=== PATIENT | male | born 1965 | race Caucasian/White ===

== ENCOUNTER 2025-01-15 17:32 | Emergency (ER) | payer BC ==
[~2025-01-15] VITALS: Ht 175.3 cm; Wt 72.6 kg
[2025-01-15 19:19] LABS: BASOPHILS # (AUTO) 0.07 K/uL (0.00-0.20); BASOPHILS % (AUTO) 0.5 % (0.0-5.0); EOSINOPHILS # (AUTO) 0.11 K/uL (0.00-0.70); EOSINOPHILS % (AUTO) 0.8 % (0.0-8.0); HEMATOCRIT 42.7 % (42-54); IMMATURE GRANULOCYTE ABSOLUTE 0.04 K/uL (0-1); MEAN CORPUSCULAR HEMOGLOBIN 29.8 pg (27.0-33.0); MEAN CORPUSCULAR HGB CONC 33.7 g/dL (32.0-36.0); MEAN CORPUSCULAR VOLUME 88.2 fL (79-99); MONOCYTES % (AUTO) 7.3 % (3.0-13.0); NEUTROPHILS # (AUTO) 8.9 K/uL (1.8-7.7); NEUTROPHILS % (AUTO) 68.1 % (40.0-77.0); PLATELET COUNT (AUTO) 228 K/uL (130-400); RED BLOOD CELL COUNT(AUTO) 4.84 MIL/uL (4.50-6.20); RED CELL DISTRIBUTION WIDTH 12.6 % (11.0-15.5); WHITE BLOOD COUNT (AUTO) 13.1 K/uL (4.8-10.8)
[2025-01-15 19:21] LABS: APPEARANCE,URINE CLEAR (CLEAR); BILIRUBIN,URINE NEGATIVE (NEGATIVE); COLOR,URINE LIGHT-YELLOW (YELLOW); GLUCOSE, URINE (UA) >=1000 mg/dL (NEGATIVE); KETONES,URINE NEGATIVE (NEGATIVE); LEUKOCYTE ESTERASE ,URINE NEGATIVE Leu/uL (NEGATIVE); NITRATE,URINE NEGATIVE (NEGATIVE); OCCULT BLOOD,URINE MODERATE (NEGATIVE); PH,URINE 5.5 (5.0-8.0); PROTEIN,URINE NEGATIVE (NEGATIVE); UROBILINOGEN,URINE 0.2 mg/dL (0.2-1.0)
[2025-01-15 19:23] LABS: ADD UA MICROSCOPIC YES
[2025-01-15 19:41] LABS: BACTERIA,URINE RARE /HPF (None Seen); CREATININE 1.3 mg/dL (0.5-1.3); MUCUS,URINE FEW LPF (None Seen); SQUAMOUS EPITHELIAL CELL,UR RARE /HPF (0-2)
[2025-01-15 19:45] LABS: ALBUMIN 3.7 g/dL (3.5-5.0); BILIRUBIN,DIRECT 0.1 mg/dL (0.0-0.3); BILIRUBIN,TOTAL 0.5 mg/dL (0.2-1.0); MAGNESIUM 2.1 mg/dL (1.80-2.40)
--- NOTE | 2025-01-15 20:52 | HMCIMG ---
CT ABDOMEN PELVIS WITHOUT CONTRAST Clinical Information: r/o urinary obstruction. Comparison: CT Dose Index (CTDI): 28.40 mGy Dose Length Product (DLP): 1536.00 total mGy-cm PROTOCOL: Routine noncontrast helical scanning of the abdomen and pelvis was performed at 5mm collimation. Findings: There is a left ureterovesical junction calculus measuring 6 mm causing [id number] hydroureteronephrosis. The contralateral kidney is unremarkable. The lung bases are clear. The stomach is unremarkable. It shows no wall thickening. No gross ulceration is seen. It is not overly distended. There are no surrounding inflammatory changes. No wall lesions are identified to suggest cancer. The spleen is unremarkable. It is not enlarged. The pancreas shows normal anatomy. It is not fatty replaced. It shows no lesions. The pancreatic duct is not dilated. The gallbladder is unremarkable. It shows no cholelithiasis. The gallbladder wall is normal in thickness. There is no pericholecystic fluid. The is no acute or chronic inflammation noted. The adrenal glands are unremarkable. There is no enlargement. No lesions are noted. The liver is unremarkable. It shows no focal masses. The appendix is unremarkable. It shows no evidence of inflammation. No appendicolith is seen. The small bowel is unremarkable. There is no evidence of dilatation to suggest obstruction. No evidence of adynamic ileus is seen. There is no small bowel wall thickening to suggest enteritis. The colon is unremarkable. The urinary bladder is unremarkable. There is no wall thickening to suggest tumor or inflammation. There are no intraluminal calculi. There are no diverticula. There is no evidence of chronic bladder outlet obstruction. There is no evidence of urinary bladder distention to suggest urinary retention. The other pelvic structures are unremarkable. The bony and vascular structures are unremarkable for the patient's age. IMPRESSION: Urinary tract calculus causing obstruction. This study was performed using dose reduction techniques to include automated exposure control and/or adjustment of the mA and/or kV according to patient size.
[2025-01-15] MEDS ORDERED: 0.9%NACL 1000ML 1,000 ML IV ONE (21:30)
[2025-01-15] MEDS ORDERED: cefTRIAXone 1G VIAL IVPB ONE (21:30)
[2025-01-15] MEDS ORDERED: ketOROlac 15MG/ML VIAL (15MG/ML) IV ONE (21:30)
[2025-01-15] MEDS ORDERED: KETO10TA2 PO (22:00)
[2025-01-15] MEDS ORDERED: SULF1TAB42 PO (22:00)
[2025-01-15] MEDS ORDERED: TAMS-1 PO (22:00)
--- NOTE | 2025-01-15 22:01 | ERN ---
General Chief Complaint: Abdominal Pain Stated Complaint: LOWER ABD PAIN Time Seen by MD: 17:54 Time Seen by Midlevel: 17:54 Source: patient History of Present Illness Initial Comments The patient is a 51-year-old male with no significant past medical history presenting to the emergency department with lower abdominal pain that has been ongoing for the last week. Denies any fever, chills, nausea, vomiting, or any other symptoms at this time. Allergies: Coded Allergies: No Known Allergies (Unverified Allergy, Unknown, 01/15/25) Past Medical History Past Medical History: No Pertinent History Past Surgical History: None ROS Dictation CONSTITUTIONAL: Negative except for HPI HEAD/FACE: Negative except for HPI EENT: Negative except for HPI RESPIRATORY: Negative except for HPI GASTROINTESTINAL/ABDOMINAL: Negative except for HPI GENITOURINARY: Negative except for HPI MUSCULOSKELETAL: Negative except for HPI INTEGUMENTARY: Negative except for HPI NEUROLOGICAL/PSYCH: Negative except for HPI HEMATOLOGIC/LYMPHATIC: Negative except for HPI All Systems Negative, Except as noted above. 13 point review of systems assessed and all negative except for above. Physical Exam Physical Exam Dictation Vital Signs reviewed General Appearance: Alert, oriented x 3, no acute distress, well developed, nourished. Head and Face: non-traumatic. Eyes: PERRL, pink conjunctivas, eyelid no trauma, anterior chamber with arcus senilis. Ears: Pinnas intact and no signs of trauma or erythema ear canals clear and no discharge TM no erythema Nose: No discharge, no bleeding. Oropharynx: Mouth normal, tongue pink, pharynx clear,no erythema, tonsils no exudates, no abscesses noted, mucous membrane moist Neck: Supple, non-tender, no thyromegaly, no masses, no JVD, no bruits Breast:Deferred Chest:No tenderness, no crepitus, no paradoxical movement, no retractions Lungs:Clear, well-ventilated, symmetric, no rales, no wheezing, no rhonchi, no stridor, good breath sounds bilaterally Heart: Regular rate, regular rhythm, no murmur, no gallops Vascular: no peripheral edema, Abdomen: Soft, positive bowel sounds, nondistended, no guarding, nontender, no rebound, no masses no hepatomegaly, no splenomegaly, no Dover's sign, no hernias. Rectal: Deferred Genital: Deferred Neurological: Normal speech, motor function intact, sensory function intact Musculoskeletal: Neck nontender, full range of motion, back nontender, full range of motion, Extremities: nontender, full range of motion Skin: Color pink, dry, no turgor, no rash, no lacerations, no abrasions, no contusions. Lymphatic: Deferred Results Laboratory and Microbiology Lab and Micro Result Laboratory Tests Test 01/15/25 19:05 White Blood Count 13.1 K/uL (4.8-10.8) H Red Blood Count 4.84 MIL/uL (4.50-6.20) Hemoglobin 14.4 g/dL (14.0-18.0) Hematocrit 42.7 % (42-54) Mean Corpuscular Volume 88.2 fL (79-99) Mean Corpuscular Hemoglobin 29.8 pg (27.0-33.0) Mean Corpuscular Hemoglobin Concent 33.7 g/dL (32.0-36.0) Red Cell Distribution Width 12.6 % (11.0-15.5) Platelet Count 228 K/uL (130-400) Mean Platelet Volume 10.0 fL (7.5-10.5) Immature Granulocyte % (Auto) 0.3 % (0-1) Neutrophils (%) (Auto) 68.1 % (40.0-77.0) Lymphocytes (%) (Auto) 23.0 % (21.0-51.0) Monocytes (%) (Auto) 7.3 % (3.0-13.0) Eosinophils (%) (Auto) 0.8 % (0.0-8.0) Basophils (%) (Auto) 0.5 % (0.0-5.0) Neutrophils # (Auto) 8.9 K/uL (1.8-7.7) H Lymphocytes # (Auto) 3.0 K/uL (1.0-4.8) Monocytes # (Auto) 1.0 K/uL (0.1-1.0) Eosinophils # (Auto) 0.11 K/uL (0.00-0.70) Basophils # (Auto) 0.07 K/uL (0.00-0.20) Absolute Immature Granulocyte (auto 0.04 K/uL (0-1) Nucleated Red Blood Cells 0.0 % (0.0-0.19) Urine Color LIGHT-YELLOW (YELLOW) Urine Appearance CLEAR (CLEAR) Urine pH 5.5 (5.0-8.0) Urine Specific [place] 1.020 (1.001-1.031) Urine Protein NEGATIVE mg/dL (NEGATIVE) Urine Glucose (UA) >=1000 mg/dL (NEGATIVE) H Urine Ketones NEGATIVE mg/dL (NEGATIVE) Urine Occult Blood MODERATE (NEGATIVE) H Urine Nitrate NEGATIVE (NEGATIVE) Urine Bilirubin NEGATIVE mg/dL (NEGATIVE) Urine Urobilinogen 0.2 mg/dL (0.2-1.0) Urine Leukocyte Esterase NEGATIVE Dominique/uL Urine RBC 11-25 /HPF (0-1) H Urine WBC 2-5 /HPF (0-1) H Urine Squamous Epithelial Cells RARE /HPF (0-2) Urine Bacteria RARE /HPF (None Seen) Urine Hyaline Casts 2-5 /LPF (0-1 /LPF) H Sodium Level 131 mmol/L (136-145) L Potassium Level 4.0 mmol/L (3.5-5.1) Chloride Level 96 mmol/L (101-111) L Carbon Dioxide Level 29 mmol/L (21-32) Blood Urea Nitrogen 28 mg/dL (7-18) H Creatinine 1.3 mg/dL (0.5-1.3) Glomerular Filtration Rate Calc 64 mL/min (>90) Random Glucose 296 mg/dL (70-105) H Total Calcium 9.6 mg/dL (8.5-10.1) Magnesium Level 2.10 mg/dL (1.80-2.40) Total Bilirubin 0.5 mg/dL (0.2-1.0) Direct Bilirubin 0.1 mg/dL (0.0-0.3) Aspartate Amino Transf (AST/SGOT) 27 U/L (10-37) Alanine Aminotransferase (ALT/SGPT) 50 U/L (12-78) Alkaline Phosphatase 102 U/L (50-136) Total Protein 8.0 g/dL (6.0-8.3) Albumin 3.7 g/dL (3.5-5.0) Lipase 61 U/L (16-77) Labs Reviewed?: Yes MDM MDM: The patient is a 51-year-old male with no significant past medical history presenting to the emergency department with lower abdominal pain that has been ongoing for the last week. Denies any fever, chills, nausea, vomiting, or any other symptoms at this time. Physical examination the patient is in no acute distress. There was no CVA tenderness. Urinalysis does not show any evidence of infection. CBC shows mild leukocytosis with a left shift. Chemistries are stable. Normal creatinine. CT scan of the abdomen reveals a left ureter stone measuring 6 mm causing mild hydroureteronephrosis. My plan was to administer IV fluids, Toradol, and ceftriaxone IV. However, the patient is refusing IV access at this time and states he would like to be discharged home since he has been in the ER for over4 hours. The patient will be given ceftriaxone IM, Flomax in the emergency department and will be discharged home. Patient was agreeable with this plan and all questions have been answered. Differential diagnosis: Ureter stone, urinary tract infection, pyelonephritis There are no social concerns with this patient. Prescription drug management Prescriptions will include: Bactrim, Flomax, ketorolac Medical management and examination interpretation discussions were had by me with other qualified healthcare professionals as indicated for the patient's care. ED Course Orders Procedure Category Date Status Time Cbc With Differential LAB 01/15/25 Complete 17:54 Basic Metabolic Panel LAB 01/15/25 Complete 17:54 Hepatic Function Panel LAB 01/15/25 Complete 17:54 Lipase LAB 01/15/25 Complete 17:54 Urinalysis Profile LAB 01/15/25 Complete 17:54 Magnesium LAB 01/15/25 Complete 17:54 Ct Abdomen/Pelvis W/O CT 01/15/25 Resulted Contrast 19:43 Ketorolac PHA 01/15/25 Complete Tromethamine 15mg/Ml 21:30 0.9%Nacl 1000ml (Ns PHA 01/15/25 Complete 1000ml) 21:30 Ceftriaxone 1g Vial PHA 01/15/25 Complete (Rocephine 1g Inj) 21:30 Ceftriaxone 1g Vial PHA 01/15/25 Logged (Rocephine 1g Inj) 22:00 Tamsulosin Hcl PHA 01/15/25 Logged (Flomax) 22:00 Hydrocodone/Apap PHA 01/15/25 Logged 5/325 ([place] 5/325mg) 22:00 Current Medications Medications (Trade) Dose Ordered Sig/Jennifer Route PRN Reason Start Time Stop Time Status Last Admin Dose Admin Acetaminophen/ Hydrocodone Bitart (NORco 5/325MG) 1 tab ONCE ONCE PO 01/15/25 22:00 01/15/25 22:01 UNV Ceftriaxone Sodium (ROCEphine 1G INJ) 1 gm ONCE ONCE IM 01/15/25 22:00 01/15/25 22:01 UNV Ceftriaxone Sodium (ROCEphine 1G INJ) 1 gm ONCE ONCE IVPB 01/15/25 21:30 01/15/25 21:52 DC Ketorolac Tromethamine (toRADol) 15 mg ONCE ONCE IV 01/15/25 21:30 01/15/25 21:52 DC Sodium Chloride 1,000 ml @ 0 mls/hr ONCE ONCE IV 01/15/25 21:30 01/15/25 21:52 DC Tamsulosin HCl (FloMAX) 0.4 mg ONCE ONCE PO 01/15/25 22:00 01/15/25 22:01 UNV Vital Signs Date Time Temp Pulse Resp B/P (MAP) Pulse Ox O2 Delivery O2 Flow Rate FiO2 01/15/25 19:14 98.4 105 20 129/89 98 9:00 p.m. patient is refusing IV fluids and IV access. Patient states his pain has completely resolved and feels comfortable going home. Patient was advised that he does have a 6 mm kidney stone. My initial plan was to give him IV fluids,1 g of Rocephin IV, and Toradol for supportive management however the patient was refusing this. We will still administer Rocephin IM and given a [place] tab along with Flomax to help the kidney stone passed. Patient is agreeable with this plan in his actually comfortable to be discharged at this time. [address] [address] IMAGING REPORT Signed PATIENT: KM HYDE MR#: [id number] : 1965 SEX: M AGE: 59 LOCATION: [facility] ORDER 43 STATUS: REG ER REPORT#: [id number] SERVICE 42 REASON: r/o urinary obstruction. ORDERING PHYSICIAN: MANDIE DAIGLE PROCEDURE: ABD PEL WO - CT ABDOMEN/PELVIS W/O CONTRAST CT ABDOMEN PELVIS WITHOUT CONTRAST Clinical Information: r/o urinary obstruction. Comparison: CT Dose Index (CTDI): 28.40 mGy Dose Length Product (DLP): 1536.00 total mGy-cm PROTOCOL: Routine noncontrast helical scanning of the abdomen and pelvis was performed at 5mm collimation. Findings: There is a left ureterovesical junction calculus measuring 6 mm causing [id number] hydroureteronephrosis. The contralateral kidney is unremarkable. The lung bases are clear. The stomach is unremarkable. It shows no wall thickening. No gross ulceration is seen. It is not overly distended. There are no surrounding inflammatory changes. No wall lesions are identified to suggest cancer. The spleen is unremarkable. It is not enlarged. The pancreas shows normal anatomy. It is not fatty replaced. It shows no lesions. The pancreatic duct is not dilated. The gallbladder is unremarkable. It shows no cholelithiasis. The gallbladder wall is normal in thickness. There is no pericholecystic fluid. The is no acute or chronic inflammation noted. The adrenal glands are unremarkable. There is no enlargement. No lesions are noted. The liver is unremarkable. It shows no focal masses. The appendix is unremarkable. It shows no evidence of inflammation. No appendicolith is seen. The small bowel is unremarkable. There is no evidence of dilatation to suggest obstruction. No evidence of adynamic ileus is seen. There is no small bowel wall thickening to suggest enteritis. The colon is unremarkable. The urinary bladder is unremarkable. There is no wall thickening to suggest tumor or inflammation. There are no intraluminal calculi. There are no diverticula. There is no evidence of chronic bladder outlet obstruction. There is no evidence of urinary bladder distention to suggest urinary retention. The other pelvic structures are unremarkable. The bony and vascular structures are unremarkable for the patient's age. IMPRESSION: Urinary tract calculus causing obstruction. This study was performed using dose reduction techniques to include automated exposure control and/or adjustment of the mA and/or kV according to patient size. DICTATED BY: VÍCTOR ULRICH MD DATE: 01/15/252047 ELECTRONICALLY SIGNED BY: VÍCTOR ULRICH MD DATE: 01/15/252051 DX & DISP Disposition: Discharge Departure Impression: Primary Impression: Left ureteral stone Condition: Stable Scripts Sulfamethoxazole/Trimethoprim (Bactrim Ds Tablet) 800 Mg-160 Mg Tablet 1 TAB PO BID for 7 Days, #14 TAB 0 Refills Prov: MANDIE DAIGLE 01/15/25 Tamsulosin HCl (Flomax) 0.4 Mg Cap.er.24h 1 CAP PO DAILY for 14 Days, #14 CAP 0 Refills Prov: MANDIE DAIGLE 01/15/25 Ketorolac Tromethamine (Ketorolac Tromethamine) 10 Mg Tablet 1 TAB PO TID for pain for 5 Days, #15 TAB 0 Refills Prov: MANDIE DAIGLE 01/15/25 Referrals: SELF,REFERRAL (PCP) GISELL ANDERSEN MD, KENNETH A MD Time of Disposition: 21:56 I have reviewed the case, and I agree with, Diagnosis and Plan I performed the substantive portion of the visit. I have reviewed and personally made and approve the management plan that is documented in the note by myself or the GEN. I acknowledge for responsibility for the patient's management plan. MANDIE DAIGLE Jan 15, 2025 22:01
[2025-01-15] MEDS: tamSULOsin HCL 0.4 MG CAP.ER.24H PO ONE (22:09)
[2025-01-15] MEDS: cefTRIAXone 1G VIAL IM ONE (22:09)
[2025-01-15] MEDS: HYDROcodone/APAP 5/325 1 TAB TABLET PO ONE (22:09)
[2025-01-15 22:11] VITALS: BP 125/86; PULSE 98; RESP 18; TEMP 98.6; O2SAT 99
== END 2025-01-15 22:19 | disposition home or self-care (01) ==
LOC: EDH 17:32
DX: N20.1 Calculus of ureter (principal)
CPT/HCPCS: 99284; 74176; 80076; 83735; 80048; 83690; 85025; 81001; 36415; 96372; J0696; J1885; J7030